=== PATIENT | female | born 1965 | race Caucasian/White ===

== ENCOUNTER 2023-05-29 15:38 | Outpatient (CLI) | payer MEDICAID, SELFPAY | END 2023-05-29 15:39 | disposition home or self-care (01) | PROVIDERS: PCP Emergency Medicine; Visit Provider Emergency Medicine | DX: Z00.00 Encounter for general adult medical examination without abnormal findings (principal); Z13.1 Encounter for screening for diabetes mellitus; Z13.6 Encounter for screening for cardiovascular disorders | CPT/HCPCS: 80053; 80061 ==

== ENCOUNTER 2023-06-28 10:19 | Outpatient (CLI) | payer MEDICAID, SELFPAY ==
--- NOTE | 2023-06-28 10:54 | W.ANESCHARGE ---
Anesthesia Charges Start Date/Time Anesthesia Start Date: 06/28/23 Anesthesia Start Time: 11:36 Stop Date/Time Anesthesia Stop Date: 06/28/23 Anesthesia Stop Time: 11:58
--- NOTE | 2023-06-28 12:00 | W.ANESCHARGE ---
Anesthesia Charges Start Date/Time Anesthesia Start Date: 06/28/23 Anesthesia Start Time: 11:36 Stop Date/Time Anesthesia Stop Date: 06/28/23 Anesthesia Stop Time: 11:58
== END 2023-06-28 10:20 | disposition home or self-care (01) ==
LOC: OP CLINIC 10:20
PROVIDERS: PCP Emergency Medicine; Visit Provider Internal Medicine
DX: Z12.11 Encounter for screening for malignant neoplasm of colon (principal); K57.30 Diverticulosis of large intestine without perforation or abscess without bleeding
CPT/HCPCS: 00811; 00812; 45378; J2704

== ENCOUNTER 2023-08-30 14:40 | Outpatient (CLI) | payer MEDICAID, SELFPAY ==
--- NOTE | 2023-08-30 15:20 | CRLHL7_ITS ---
For Patients: As a result of the Century Cures Act, medical imaging exams and procedure reports are released immediately into your electronic medical record. You may view this report before your referring provider. If you have questions, please contact your health care provider. BILATERAL SCREENING MAMMOGRAM WITH COMPUTER-AIDED DETECTION TECHNIQUE: CC and MLO views were obtained. These mammographic images have been obtained using full-field digital technique. These mammographic images were interpreted with the benefit of computer-aided detection. COMPARISON FILM: Baseline. FINDINGS: There are scattered areas of fibroglandular density IMPRESSION: There is no radiographic evidence for malignancy. ASSESSMENT: BI-RADS Category 1: Negative RECOMMENDATION: Routine screening mammogram in 1 year. A lay language report of this examination will be provided to the patient. Esa Encinas M.D. Diagnostic Radiologist [email or web address] Transcribed: 4:42 p.mAnish lewis/Dictated by: Esa Encinas MD @ 09/03/2023 8:22:00 AM (Electronically Signed)
== END 2023-08-30 14:41 | disposition home or self-care (01) ==
LOC: MAMMO 14:41
PROVIDERS: PCP Emergency Medicine; Visit Provider Emergency Medicine
DX: Z12.31 Encounter for screening mammogram for malignant neoplasm of breast (principal)
CPT/HCPCS: 77067

== ENCOUNTER 2024-12-11 10:42 | Outpatient (CLI) | payer OTHER, SELFPAY ==
[2024-12-11 14:04] LABS: Albumin* 4.3 g/dL (3.3-5.0); Chloride* 105 mmol/L (96-114)
[2024-12-11 14:07] LABS: Alanine Aminotransferase* 22 U/L (4-35); Alkaline Phosphatase* 85 U/L (40-150); Aspartate Amino Transferase* 22 U/L (12-35); Bilirubin Direct* 0.4 mg/dL (0.0-0.5); Bilirubin Total* 0.5 mg/dL (0.1-1.5); Blood Urea Nitrogen* 11 mg/dL (7-30); Carbon Dioxide* 25 mmol/L (20-32); Cholesterol* 187 mg/dL (90-199); Creatinine* 0.8 mg/dL (0.5-1.5); Estimated Glomerular Filt Rate 85 ml/min; Total Protein* 7.4 g/dL (6.0-8.3); Triglycerides* 156 mg/dL (40-149)
[2024-12-11 14:11] LABS: Hemoglobin A1C* 6.8 % (0-5.6)
[2024-12-11 14:31] LABS: Anion Gap 9 mEq/L (7-15); Potassium* 4.6 mmol/L (3.6-5.1); Sodium* 139 mmol/L (135-149)
[2024-12-11 14:43] LABS: Calcium* 9.1 mg/dL (8.4-10.6); Glucose* 232 mg/dL (60-115); HDL Cholesterol* 43 mg/dL (>=50); LDL Cholesterol Calculated 113 mg/dL (<100)
== END 2024-12-11 10:43 | disposition home or self-care (01) ==
LOC: NPINS 10:42
PROVIDERS: PCP Emergency Medicine; Visit Provider Nurse Practitioner Gerontology
DX: F31.2 Bipolar disorder, current episode manic severe with psychotic features (principal)
CPT/HCPCS: 80048; 80061; 80076; 83036; 84443

== ENCOUNTER 2025-06-15 10:20 | Outpatient (CLI) | payer OTHER, SELFPAY | END 2025-06-15 10:21 | disposition home or self-care (01) | LOC: NPINS 10:21 | PROVIDERS: Visit Provider Nurse Practitioner Gerontology | DX: Z79.899 Other long term (current) drug therapy (principal) | CPT/HCPCS: 83036 ==

== ENCOUNTER 2025-07-26 12:09 | Outpatient (CLI) | payer OTHER, SELFPAY | END 2025-07-26 12:10 | disposition home or self-care (01) | LOC: NFLDREF 07-30 10:38 | PROVIDERS: Visit Provider Family Medicine | DX: E11.9 Type 2 diabetes mellitus without complications (principal) | CPT/HCPCS: 82043; 82570 ==